=== PATIENT | male | born 1995 | race Caucasian/White ===

== ENCOUNTER 2018-02-12 14:59 | Emergency (ER) | payer SELFPAY, OTHER ==
[2018-02-12] MEDS ORDERED: CA CHLORIDE 10% 10 ML SYRINGE (16:38)
[2018-02-12] MEDS: SOD CHLORIDE 0.9% 500 ML IV (18:02)
[2018-02-12 18:24] LABS: ADD MAN DIFF? NO
[2018-02-12 18:29] LABS: BASOPHIL # 0.1 10^3/ul (0.0-0.1); BASOPHILS % 0.5 % (0.0-2.0); EOSINOPHILS # 0.1 10^3/ul (0.0-0.5); EOSINOPHILS % 1.2 % (0.0-7.0); HEMATOCRIT 36.1 % (42.0-52.0); HEMOGLOBIN 12.6 g/dl (14.0-18.0); LYMPHOCYTES # 1.7 10^3/ul (0.8-2.9); LYMPHOCYTES % 18.1 % (15.0-51.0); MEAN CORPUSCULAR HEMOGLOBIN 30.4 pg (29.0-33.0); MEAN CORPUSCULAR HGB CONC 34.9 g/dl (32.0-37.0); MEAN CORPUSCULAR VOLUME 87.2 fl (82.0-101.0); MEAN PLATELET VOLUME 11.8 fl (7.4-10.4); MONOCYTE # 0.8 10^3/ul (0.3-0.9); MONOCYTES % 8.3 % (0.0-11.0); NEUTROPHIL # 6.7 10^3/ul (1.6-7.5); NEUTROPHILS % 71.3 % (39.0-77.0); PLATELET COUNT 170 10^3/UL (140-415); POSITIVE DIFF @See below; RED BLOOD COUNT 4.14 10^6/ul (4.70-6.10); RED CELL DISTRIBUTION WIDTH 12.3 % (11.5-14.5)
[2018-02-12 18:29] LABS: WHITE BLOOD COUNT 9.4 10^3/ul (4.8-10.8)
[2018-02-12] MEDS: HYDROmorphONE 1 MG/5 ML IV SYRINGE IV (18:35)
[2018-02-12] MEDS: ONDANSETRON 4 MG INJ IV (18:35)
[2018-02-12 18:48] LABS: ANION GAP 10 (8-16); BLOOD UREA NITROGEN 12 mg/dl (7-20); CARBON DIOXIDE 31 mmol/L (21-31); CHLORIDE 104 mmol/L (97-110); CREATININE 0.78 mg/dl (0.61-1.24); GLUCOSE 95 mg/dl (70-220); POTASSIUM 4.2 mmol/L (3.5-5.1); SODIUM 141 mmol/L (135-144)
[2018-02-12] MEDS: ONDANSETRON (ODT) 4 MG TAB ODT (18:58)
[2018-02-12] MEDS: HYDROmorphONE 0.5 MG/0.5 ML SYG IM (19:01)
[2018-02-12 19:40] LABS: BURR CELLS 1+ (0-0); EOSINOPHILS % (M) 1 % (0-7); ERYTHROBLAST% (NRBC) (M) 1 % (0-0); LYMPHOCYTES #M 2.1 10^3/ul (0.8-2.9); LYMPHOCYTES % (M) 23 % (15-51); MONOCYTE #M 0.5 10^3/ul (0.3-0.9); MONOCYTES % (M) 6 % (0-11); PLATELET ESTIMATE NORMAL; POIKILOCYTOSIS 1+ (0-0); REACTIVE LYMPHOCYTES #M 0.2 10^3/ul (0.0-0.0); REACTIVE LYMPHOCYTES% (M) 3 % (0-0); SEGMENTED NEUTROPHILS (M) % 67 % (39-77); SMUDGE%M 3 % (0-0)
[2018-02-12 20:46] LABS: INR 1.07; PARTIAL THROMBOPLASTIN TIME 29.3 Sec (25.0-35.0); PT RATIO 1.1
== END 2018-02-12 22:06 | disposition home or self-care (01) ==
LOC: FTE 14:59 → E/R 22:06
DX: S06.4X9A Epidural hemorrhage with loss of consciousness of unspecified duration, initial encounter (principal); S02.19XA Other fracture of base of skull, initial encounter for closed fracture; R40.2142 Coma scale, eyes open, spontaneous, at arrival to emergency department; R40.2362 Coma scale, best motor response, obeys commands, at arrival to emergency department; R40.2252 Coma scale, best verbal response, oriented, at arrival to emergency department; R10.9 Unspecified abdominal pain; X58.XXXA Exposure to other specified factors, initial encounter; Y92.9 Unspecified place or not applicable
CPT/HCPCS: 36415; 70450; 70486; 71045; 80048; 85025; 85610; 85730; 93005; 96372; 96374; 96375; 99285-25

== ENCOUNTER 2018-02-17 20:30 | Emergency (ER) | payer MEDICAID ==
[2018-02-17] MEDS: HYDROCODONE/APAP (10/325) TAB PO (21:34)
== END 2018-02-17 21:35 | disposition home or self-care (01) ==
LOC: FTE 20:30
DX: Z76.0 Encounter for issue of repeat prescription (principal); Z87.891 Personal history of nicotine dependence
CPT/HCPCS: 99283; Z7502

== ENCOUNTER 2018-03-13 14:51 | Emergency (ER) | payer MEDICAID ==
[2018-03-13] MEDS ORDERED: DICYCLOMINE 10 MG CAP PO (16:00)
== END 2018-03-13 15:47 | disposition home or self-care (01) ==
LOC: E/R 14:51
DX: R05 Cough (principal); Z87.891 Personal history of nicotine dependence
CPT/HCPCS: 99283

== ENCOUNTER 2018-10-28 19:08 | Emergency (ER) | payer OTHER, MEDICAID | END 2018-10-28 23:00 | disposition home or self-care (01) | LOC: FTE 19:08 | DX: R42 Dizziness and giddiness (principal); Z87.891 Personal history of nicotine dependence | CPT/HCPCS: 99282; Z7502 ==

== ENCOUNTER 2019-06-10 17:32 | Emergency (ER) | payer OTHER ==
[2019-06-10] MEDS: SOD CHLORIDE 0.9% 1,000 ML IV (18:47)
[2019-06-10] MEDS: METOCLOPRAMIDE 10 MG INJ IV (18:47)
[2019-06-10] MEDS: KETOROLAC 30 MG INJ IV (18:49)
[2019-06-10] MEDS: AZITHROMYCIN 500 MG TAB PO (19:09)
[2019-06-10] MEDS: LIDOCAINE 1% (MPF) 5 ML VIAL INJ (19:09)
[2019-06-10] MEDS: CEFTRIAXONE 250 MG INJ IM (19:15)
[2019-06-10 19:16] LABS: ADD UMIC YES; UR ASCORBIC ACID 40 mg/dL (NEGATIVE); UR BACTERIA FEW /HPF (NONE SEEN); UR BILIRUBIN (Dip) NEGATIVE (NEGATIVE); UR BLOOD (Dip) NEGATIVE (NEGATIVE); UR CLARITY CLOUDY (CLEAR); UR COLOR YELLOW (YELLOW); UR GLUCOSE (Dip) NEGATIVE (NEGATIVE); UR KETONES (Dip) TRACE mg/dL (NEGATIVE); UR LEUKOCYTE ESTERASE (Dip) TRACE Leu/ul (NEGATIVE); UR MUCUS MANY /HPF (NONE SEEN); UR NITRITE (Dip) NEGATIVE (NEGATIVE); UR RBC 9 /HPF (0-5); UR SPECIFIC GRAVITY (Dip) 1.032 (1.003-1.030); UR TOTAL PROTEIN (Dip) NEGATIVE (NEGATIVE); UR UROBILINOGEN (Dip) 1+ mg/dL (NEGATIVE); UR WBC 17 /HPF (0-5)
== END 2019-06-10 20:01 | disposition home or self-care (01) ==
LOC: FTE 20:01
DX: G44.209 Tension-type headache, unspecified, not intractable (principal); F17.210 Nicotine dependence, cigarettes, uncomplicated; R30.0 Dysuria; Z11.3 Encounter for screening for infections with a predominantly sexual mode of transmission; Z79.82 Long term (current) use of aspirin
CPT/HCPCS: 81001; 87086; 87591; 96361; 96372; 96374; 96375; 99284-25